=== PATIENT | female | born 1985 | race American Indian/Alaskan Native ===

== ENCOUNTER 2017-06-11 16:47 | Inpatient (IN) | payer MEDICAID ==
[2017-06-11] MEDS ORDERED: Sodium Chloride 0.9% 1,000 ML IV STA (17:18)
--- NOTE | 2017-06-11 17:23 | ED PDOC ---
Arrival/HPI - General Chief Complaint: Abdominal Pain Time Seen by Provider: 06/11/17 16:50 Historian: Patient - History of Present Illness Narrative History of Present Illness (Text): 06/11/17 17:21 31-year-old female with a history of high blood pressure and diabetes presents today with diffuse abdominal pain 2 days. Patient states the pain started yesterday suddenly. Patient states the pain is sharp and stabbing and constant along the center of the abdomen. Patient complaining of nausea no vomiting or diarrhea. Denies chest pain or shortness of breath. Complaining of mid lower back pain. Denies numbness weakness or tingling in the extremities. States she took Tylenol for pain without improvement. Patient denies dizziness or weakness. Patient complaining of urinary frequency but denies hematuria or dysuria. Complaining of subjective fevers at home. No other complaints. Time/Duration: Other (yesterday) Symptom Onset: Sudden Symptom Course: Worsening Quality: Stabbing Severity Level: 6 Past Medical History - Provider Review Nursing Documentation Reviewed: Yes - Travel History Have you recently traveled outside [place] w/in the past 3 mons?: No - Infectious Disease Hx of Infectious Diseases: None - Tetanus Immunization Tetanus Immunization: Unknown - Cardiac Hx Hypertension: Yes - Endocrine/Metabolic Hx Diabetes Mellitus Type 2: Yes Hx Hypothyroidism: Yes - Psychiatric Hx Substance Use: No - Anesthesia Hx Anesthesia: Yes Hx Anesthesia Reactions: No Hx Malignant Hyperthermia: No Family/Social History - Physician Review Nursing Documentation Reviewed: Yes Family/Social History: Unknown Family HX Smoking Status: Never Smoked Hx Alcohol Use: Yes Frequency of alcohol use: Socially Hx Substance Use: No Allergies/Home Meds Allergies/Adverse Reactions: Allergies No Known Allergies Allergy (Verified 06/11/17 16:54) Home Medications: Home Meds Medication Instructions Recorded Confirmed Lisinopril [Zestril] 5 mg PO DAILY 06/11/17 06/11/17 Simvastatin [Zocor] 20 mg PO HS 06/11/17 06/11/17 metFORMIN [glucOPHAGE] 750 mg PO BID 06/11/17 06/11/17 Review of Systems - Review of Systems Constitutional: Fevers. absent: Fatigue Respiratory: absent: SOB, Cough Cardiovascular: absent: Chest Pain, Palpitations Gastrointestinal: Abdominal Pain, Constipation, Nausea. absent: Diarrhea, Vomiting Genitourinary Female: Frequency. absent: Dysuria, Hematuria, Urine Output Changes, Vaginal Bleeding, Vaginal Discharge Musculoskeletal: Back Pain. absent: Arthralgias, Neck Pain Skin: absent: Rash, Pruritis Neurological: absent: Headache, Dizziness Psychiatric: absent: Anxiety, Depression Physical Exam Vital Signs Reviewed: Yes Vital Signs Temp Pulse Resp BP Pulse Ox 06/11/17 16:50 97.8 F 73 20 132/82 99 Temperature: Afebrile Blood Pressure: Normal Pulse: Regular Respiratory Rate: Normal Appearance: Positive for: Well-Appearing, Non-Toxic, Comfortable Pain Distress: None Mental Status: Positive for: Alert and Oriented X 3 - Systems Exam Head: Present: Atraumatic Mouth: Present: Moist Mucous Membranes Neck: Present: Normal Range of Motion Respiratory/Chest: Present: Clear to Auscultation, Good Air Exchange. No: Respiratory Distress, Accessory Muscle Use Cardiovascular: Present: Regular Rate and Rhythm Abdomen: Present: Tenderness (diffuse abdominal tenderness. ), Normal Bowel Sounds, Guarding. No: Rebound Back: Present: Normal Inspection. No: CVA Tenderness, Midline Tenderness, Paraspinal Tenderness Upper Extremity: Present: Normal Inspection Lower Extremity: Present: Normal Inspection Neurological: Present: GCS=15, Speech Normal Skin: Present: Warm, Dry Psychiatric: Present: Alert, Oriented x 3 Medical Decision Making ED Course and Treatment: 06/11/17 17:23 Patient is nontoxic well appearing with stable vital signs presenting with severe abdominal pain CBC wbc;15 CMP wnl Amylase wnl Lipase wnl Urinalysis+ blood, no leukocytes CAT scan: FINDINGS: Lower thorax: Heart size is normal. Lung bases are clear. ABDOMEN: Liver: unremarkable Gallbladder and bile ducts: unremarkable Pancreas: unremarkable Spleen: unremarkable Adrenals: unremarkable Kidneys and ureters: unremarkable Stomach and bowel: Stomach is almost empty. Rotation is normal. Mid small bowel is mildly distended with fluid. There is no obstruction. Terminal ileum is unremarkable. There is mild prominence of the appendix. Maximal diameter is approximately 7 mm. Margins are somewhat indistinct. There is adjacent inflammation. There is trace fluid adjacent to the tip of the appendix.Colon is incompletely distended which limits evaluation. Appendix: See stomach and bowel PELVIS: Bladder: unremarkable Reproductive: Uterus and adnexal structures are unremarkable. ABDOMEN and PELVIS: Intraperitoneal space: There is no free air. Bones/joints: There is sclerosis in the sacroiliac joints. Soft tissues: There is a fat containing umbilical hernia. Vasculature: Vascular structures are unremarkable. Lymph nodes: There is shotty adenopathy. IMPRESSION: Appendicitis Additional findings as described above. Patient reassessment: pt with continued pain. Vomited once after CT; zofran and morphine added. blood cultures pending. zosyn started IV. case discussed with medical surgical tech; dr. garcia. case discussed with surgeon dr. cristobal; currently at bedside evaluating patient. would like patient admitted to hospitalist. Discussed all results with patient in depth case discussed with dr. barrientos; accepts admission to med/surg for appendicitis Impression: Appendicitis, leukocytosis admit med/surg - Lab Interpretations Lab Results: 06/11/17 17:35 06/11/17 17:35 Lab Results 06/11/17 17:35: WBC 15.0 H, RBC 4.48, Hgb 12.4, Hct 38.1, MCV 85.0, MCH 27.7, MCHC 32.5, RDW 13.7, Plt Count 245, MPV 10.0, Gran % 73.4 H, Lymph % (Auto) 20.0 L, [place] % (Auto) 5.7, Eos % (Auto) 0.8 L, Baso % (Auto) 0.1, Gran # 11.01 H , Lymph # 3.0, [place] # 0.9 H, Eos # 0.1, Baso # 0.01 06/11/17 17:35: Sodium 139, Potassium 3.1 L, Chloride 100, Carbon Dioxide 31, Anion Gap 11, BUN 9, Creatinine 0.7, Est GFR ( Amer) > 60, Est GFR (Non- Af Amer) > 60, Random Glucose 101, Calcium 8.7, Total Bilirubin 0.5, AST 21, ALT 27, Alkaline Phosphatase 71, Total Protein 7.3, Albumin 3.7, Globulin 3.6, Albumin/Globulin Ratio 1.0 L, Amylase 39, Lipase 40 06/11/17 17:35: Urine Color Yellow, Urine Appearance Clear, Urine pH 6.0, Ur Specific [place] >= 1.030, Urine Protein 100 H, Urine Glucose (UA) Negative, Urine Ketones Negative, Urine Blood Trace-intact H, Urine Nitrate Negative, Urine Bilirubin Negative, Urine Urobilinogen 0.2, Ur Leukocyte Esterase Negative , Urine RBC 0 - 2, Urine WBC 0 - 2, Ur Epithelial Cells 0 - 2, Urine Bacteria Many, Urine HCG, Qual Negative - RAD Interpretation Radiology Orders: 06/11/17 17:17 ABD & PELVIS IV CONTRAST ONLY [CT] Stat CHEST PORTABLE [RAD] Stat - Medication Orders Current Medication Orders: Discontinued Medications Sodium Chloride (Sodium Chloride 0.9%) 1,000 mls @ 999 mls/hr IV .Q1H1M STA Stop: 06/11/17 18:18 Last Admin: 06/11/17 17:33 Dose: 999 mls/hr Piperacillin Sod/Tazobactam Sod (Zosyn 3.375 In Ns 100ml) 100 mls @ 200 mls/hr IVPB STAT STA PRN Reason: Protocol Stop: 06/11/17 20:38 Iohexol (Omnipaque 350 100 Ml) Confirm Administered Dose 350 mg .ROUTE .STK-MED ONE Stop: 06/11/17 18:13 Morphine Sulfate (Morphine) 4 mg IVP STAT STA Stop: 06/11/17 18:11 Last Admin: 06/11/17 18:31 Dose: 4 mg Ondansetron HCl (Zofran Inj) 4 mg IVP STAT STA Stop: 06/11/17 19:03 Last Admin: 06/11/17 19:16 Dose: 4 mg Disposition/Present on Arrival - Present on Arrival Any Indicators Present on Arrival: No History of DVT/PE: No History of Uncontrolled Diabetes: No Urinary Catheter: No History of Decub. Ulcer: No History Surgical Site Infection Following: None - Disposition Have Diagnosis and Disposition been Completed?: Yes Diagnosis: Appendicitis Disposition: HOSPITALIZED Disposition Time: 20:13 Patient Plan: Admission Patient Problems: Current Active Problems Problem Status Onset Appendicitis Acute Condition: FAIR Referrals: Chemo Bullock MD [Primary Care Provider] - Follow up with primary Forms: Mzinga (Australian)
[2017-06-11 17:42] LABS: ADD MANUAL DIFF? NO
[2017-06-11 17:54] LABS: ALKALINE PHOSPHATASE 71 U/L (38-133); ALT/SGPT 27 U/L (7-56); AMYLASE 39 U/L (35-125); AST/SGOT 21 U/L (15-39); BILIRUBIN,TOTAL 0.5 mg/dL (0.2-1.3); BLOOD UREA NITROGEN 9 mg/dL (7-21); CALCIUM 8.7 mg/dL (8.4-10.5); CARBON DIOXIDE 31 mmol/L (21-33); CHLORIDE 100 mmol/L (95-110); GFR AFRICAN-AMERICAN > 60; GLUCOSE,RANDOM 101 mg/dL (70-110); LIPASE 40 U/L (23-300); POTASSIUM 3.1 mmol/L (3.6-5.0); SODIUM 139 mmol/L (132-148); TOTAL PROTEIN 7.3 g/dL (5.8-8.3)
[2017-06-11 17:57] LABS: URINE APPEARANCE CLEAR (CLEAR); URINE BILIRUBIN NEGATIVE (NEGATIVE); URINE BLOOD TRACE-INTACT (NEGATIVE); URINE COLOR YELLOW (YELLOW); URINE GLUCOSE (UA) NEGATIVE (NEGATIVE); URINE KETONE NEGATIVE (NEGATIVE); URINE LEUKOCYTE ESTERASE NEGATIVE Leu/uL (NEGATIVE); URINE PROTEIN 100 mg/dL (<30 mg/dL); URINE UROBILINOGEN 0.2 E.U./dL (<1 E.U./dL)
[2017-06-11 18:08] LABS: BASO # 0.01 K/mm3 (0.0-2.0); BASO % 0.1 % (0.0-3.0); EOS # 0.1 (0.0-0.7); EOS % 0.8 % (1.5-5.0); GRAN # 11.01 (1.4-6.5); GRAN % 73.4 % (50.0-68.0); HEMATOCRIT 38.1 % (36.0-48.0); MEAN CORPUSCULAR HEMOGLOBIN 27.7 pg (25.0-35.0); MEAN CORPUSCULAR HGB CONC 32.5 g/dl (31.0-37.0); MONO # 0.9 (0.1-0.6); MONO % 5.7 % (1.0-6.0); PLATELET COUNT 245 10^3/uL (120.0-450.0); RED CELL DISTRIBUTION WIDTH 13.7 % (11.5-14.5)
[2017-06-11] MEDS ORDERED: Morphine 4 mg/ml ISec IVP STA (18:10)
[2017-06-11] MEDS ORDERED: Iohexol 350 MG/100 ML VIAL ONE (18:12)
[2017-06-11 18:16] LABS: URINE BACTERIA MANY (NEG); URINE EPITHELIAL CELLS 0 - 2 /hpf (0-5); URINE RBC 0 - 2 /hpf (0-2); URINE WBC 0 - 2 /hpf (0-6)
--- NOTE | 2017-06-11 19:58 | CT ---
EXAM: CT Abdomen and Pelvis With Intravenous Contrast CLINICAL HISTORY: 31 years old, female; Pain; Abdominal pain; Patient HX: Abd, back pain. ; Additional info: Abd pain TECHNIQUE: Axial computed tomography images of the abdomen and pelvis with intravenous contrast. This CT exam was performed using one or more of the following dose reduction techniques: automated exposure control, adjustment of the mA and/or kV according to patient size, and/or use of iterative reconstruction technique. Coronal and sagittal reformatted images were created and reviewed. CONTRAST: 96 mL of OMNIPAQUE 350 administered intravenously. EXAM DATE/TIME: 06/11/2017 5:17 PM COMPARISON: There are no prior studies for comparison. FINDINGS: Lower thorax: Heart size is normal. Lung bases are clear. ABDOMEN: Liver: unremarkable Gallbladder and bile ducts: unremarkable Pancreas: unremarkable Spleen: unremarkable Adrenals: unremarkable Kidneys and ureters: unremarkable Stomach and bowel: Stomach is almost empty. Rotation is normal. Mid small bowel is mildly distended with fluid. There is no obstruction. Terminal ileum is unremarkable. There is mild prominence of the appendix. Maximal diameter is approximately 7 mm. Margins are somewhat indistinct. There is adjacent inflammation. There is trace fluid adjacent to the tip of the appendix.Colon is incompletely distended which limits evaluation. Appendix: See stomach and bowel PELVIS: Bladder: unremarkable Reproductive: Uterus and adnexal structures are unremarkable. ABDOMEN and PELVIS: Intraperitoneal space: There is no free air. Bones/joints: There is sclerosis in the sacroiliac joints. Soft tissues: There is a fat containing umbilical hernia. Vasculature: Vascular structures are unremarkable. Lymph nodes: There is shotty adenopathy. IMPRESSION: Appendicitis Additional findings as described above.
[2017-06-11] MEDS ORDERED: Piperacillin/Tazobact 3.375 gm 100 ML IVPB STA (20:09)
[2017-06-11] MEDS ORDERED: Potassium Chloride 20 mEq ER Tab PO STA (20:58)
[2017-06-11] MEDS: Sodium Chloride 0.9% 1,000 ML IV SCH (21:50)
[2017-06-11] MEDS ORDERED: Ciprofloxacin 400mg/200ml D5W 400 MG/200 ML BAG IVPB SCH (22:00)
[2017-06-11] MEDS: Insulin Reg-MEDIUM-Coverage SC SCH (22:25)
[2017-06-11] MEDS: metroNIDAZOLE IV 500 mg/100 ml 500 MG/100 ML BAG IVPB SCH (22:30)
[2017-06-11] MEDS: Morphine 2 mg/ml ISec IVP PRN (23:29)
[2017-06-12 01:23] VITALS: BMI 48.5
--- NOTE | 2017-06-12 02:13 | CP.PCM.HP ---
<HERB THOMAS - Last Filed: 06/12/17 02:04> History of Present Illness - History of Present Illness History of Present Illness: CC: Diffuse Abdominal Pain HPI: Ms. Calix is a 31 year old AA female with a past medical history of DM2, HTN, HLD and hypothyroidism presented with one day of diffuse abdominal pain. Patient states that she was at home resting yesterday around 1700 when she suddenly felt a sharp non-radiating abdominal pain that was "all over" her abdomen and shortly after she became nauseous. She reports that alleviating/ aggravating factors. In the ED, a CT abd/pelvis showed appendicitis. She was also given one dose of morphine for pain control. Currently she continues to report the same abdominal pain with associated nausea and states that it has not changed in intensity or quality. She denies fever, headache, dizziness, chest pain, shortness of breath, vomiting, diarrhea or constipation. PMH: DM2, HTN, HLD, Hypothyroid PSH: none Family History: DM, HTN-Grandmother Social History: denies tobacco, alcohol or illicit drug use Allergies: NKDA Medications: Lisinopril, Synthroid, Metformin, Sitagliptin, and Simvastatin Present on Admission - Present on Admission Any Indicators Present on Admission: No Review of Systems - Review of Systems Review of Systems: please refer to HPI Past Patient History - Infectious Disease Hx of Infectious Diseases: None - Tetanus Immunizations Tetanus Immunization: Unknown - Past Social History Smoking Status: Never Smoked - CARDIAC Hx Hypertension: Yes - ENDOCRINE/METABOLIC Hx Diabetes Mellitus Type 2: Yes Hx Hypothyroidism: Yes - MUSCULOSKELETAL/RHEUMATOLOGICAL Hx Falls: Yes - PSYCHIATRIC Hx Substance Use: No - SURGICAL HISTORY Hx Surgeries: No - ANESTHESIA Hx Anesthesia: Yes Hx Anesthesia Reactions: No Hx Malignant Hyperthermia: No Meds Allergies/Adverse Reactions: Allergies Allergy/AdvReac Type Severity Reaction Status Date / Time No Known Allergies Allergy Verified 06/11/17 16:54 Physical Exam - Constitutional Appears: No Acute Distress - Head Exam Head Exam: NORMAL INSPECTION, NORMOCEPHALIC - Eye Exam Eye Exam: EOMI, Normal appearance - ENT Exam ENT Exam: Mucous Membranes Moist, Normal Exam - Neck Exam Neck exam: Positive for: Full Rom. Negative for: Lymphadenopathy - Respiratory Exam Respiratory Exam: Clear to Auscultation Bilateral, NORMAL BREATHING PATTERN. absent: Rales, Rhonchi, Wheezes, Respiratory Distress - Cardiovascular Exam Cardiovascular Exam: REGULAR RHYTHM, RRR, +S1, +S2. absent: Bradycardia, Tachycardia, Systolic Murmur - GI/Abdominal Exam GI & Abdominal Exam: Normal Bowel Sounds, Tenderness. absent: Distended, Firm, Hernia, Mass Additional comments: TTP diffusely with more so noted in LLQ - Extremities Exam Extremities exam: Positive for: normal capillary refill, pedal pulses present. Negative for: calf tenderness, pedal edema - Neurological Exam Neurological exam: Alert, Oriented x3 - Psychiatric Exam Psychiatric exam: Normal Affect, Normal Mood - Skin Skin Exam: Dry, Intact, Normal Color, Warm Results - Vital Signs Recent Vital Signs: Last Vital Signs Temp 98.7 F 06/11/17 22:00 Pulse 84 06/11/17 22:00 Resp 18 06/11/17 22:00 BP 157/91 H 06/11/17 22:00 Pulse Ox 100 06/11/17 21:47 - Labs Result Diagrams: 06/11/17 17:35 06/11/17 17:35 Labs: Laboratory Results - last 24 hr 06/11/17 06/11/17 06/11/17 21:30 21:39 22:24 POC Glucose (mg/dL) 119 H TSH 3rd Generation 4.03 Blood Type O POSITIVE Antibody Screen Negative BBK History Checked No verified bt Assessment & Plan - Assessment and Plan (Free Text) Assessment: Ms. Calix is a 31 year old AA female with a past medical history of DM2, HTN, HLD and hypothyroidism presented with one day of diffuse abdominal pain. Plan: 1. Appendicitis -Surgery consulted, all recs appreciated -planned appendectomy on 06/12 -started on rocephin/flagyl -morphine/tylenol for pain control -IVF: NS 100mls/hr -zofran PRN -NPO diet for surgery 2. History of DM2 -SSI medium -fingersticks q6 3. History of HTN -started hydralazine 4. History of Hypothyroid -TSH WNL -free T4 pending -started synthroid 50mcg qd 5. GI/DVT Prophylaxis -protonix/scd's Patient seen and case discussed in detail with attending, Dr. Lerner. - Date & Time Date: 06/12/17 Time: 02:14 <Joe Lerner Q - Last Filed: 06/12/17 04:41> Results - Vital Signs Recent Vital Signs: Last Vital Signs Temp 98.7 F 06/11/17 22:00 Pulse 84 06/11/17 22:00 Resp 18 06/11/17 22:00 BP 157/91 H 06/11/17 22:00 Pulse Ox 100 06/11/17 21:47 - Labs Result Diagrams: 06/11/17 17:35 06/11/17 17:35 Labs: Laboratory Results - last 24 hr 06/11/17 06/11/17 06/11/17 21:30 21:39 22:24 POC Glucose (mg/dL) 119 H TSH 3rd Generation 4.03 Blood Type O POSITIVE Antibody Screen Negative BBK History Checked No verified bt Attending/Attestation - Attestation I have personally seen and examined this patient.: Yes I have fully participated in the care of the patient.: Yes I have reviewed all pertinent clinical information: Yes Notes (Text): 06/12/17 04:39 I agree with the above note and exame by the international marketing intern with the addition/exception of the followin31 y/o obese female with Htn, DM2 presenting with abdominal pain and is found to have appendicitis on CT of her Abdomen. Evaluated by Surgery, planned for OR in the AM; will keep her NPO; IVF for hydration; Morphine prn pain. Patient is hemodynamically stable and only appears to be in mild distress which is alleviated by pain control with morphine.
--- NOTE | 2017-06-12 02:54 | CP.PCM.CON ---
History of Present Illness - History of Present Illness History of Present Illness: Consult Note- Dr. Christine CC: Abdominal Pain 31 AA F pmhx of DM2, HTN, and hypothyroidism presented with one day of diffuse abdominal pain. Patient states 5:00pm she suddenly felt a sharp non-radiating abdominal pain that was "all over" her abdomen and shortly after she became nauseous. In the ED abdominal pain continues with mild relief with morphine. Denies F/C/SELLERS CP/SOB V/D PMH: DM2, HTN, HLD, Hypothyroid PSH: none Allergies: NKDA SocialHx: denies tobacco, alcohol or illicit drug use Review of Systems - Review of Systems All systems: reviewed and no additional remarkable complaints except Past Patient History - Infectious Disease Hx of Infectious Diseases: None - Tetanus Immunizations Tetanus Immunization: Unknown - Past Social History Smoking Status: Never Smoked - CARDIAC Hx Hypertension: Yes - ENDOCRINE/METABOLIC Hx Diabetes Mellitus Type 2: Yes Hx Hypothyroidism: Yes - MUSCULOSKELETAL/RHEUMATOLOGICAL Hx Falls: Yes - PSYCHIATRIC Hx Substance Use: No - SURGICAL HISTORY Hx Surgeries: No - ANESTHESIA Hx Anesthesia: Yes Hx Anesthesia Reactions: No Hx Malignant Hyperthermia: No Meds Allergies/Adverse Reactions: Allergies Allergy/AdvReac Type Severity Reaction Status Date / Time No Known Allergies Allergy Verified 06/11/17 16:54 - Medications Medications: Current Medications Acetaminophen (Tylenol 325mg Tab) 650 mg PO Q6H PRN PRN Reason: Fever >100.4 F Hydralazine HCl (Apresoline) 10 mg IVP Q6 PRN PRN Reason: Systolic Blood Pressure Metronidazole (Flagyl) 500 mg in 100 mls @ 100 mls/hr IVPB Q8 TEJAS PRN Reason: Protocol Last Admin: 06/11/17 22:30 Dose: 100 mls/hr Sodium Chloride (Sodium Chloride 0.9%) 1,000 mls @ 100 mls/hr IV .Q10H TEJAS Last Admin: 06/11/17 21:50 Dose: 100 mls/hr Ceftriaxone Sodium (Rocephin 2 Gm Ivpb) 2 gm in 100 mls @ 100 mls/hr IVPB DAILY TEJAS PRN Reason: Protocol Insulin Human Regular (Humulin R Med) 0 units SC ACHS TEJAS PRN Reason: Protocol Last Admin: 06/11/17 22:25 Dose: Not Given Levothyroxine Sodium (Synthroid) 50 mcg IVP DAILY [facility] Morphine Sulfate (Morphine) 2 mg IVP Q4H PRN PRN Reason: Pain, severe (8-10) Last Admin: 06/11/17 23:29 Dose: 2 mg Ondansetron HCl (Zofran Inj) 4 mg IVP Q6H PRN PRN Reason: Nausea/Vomiting Pantoprazole Sodium (Protonix Inj) 40 mg IVP DAILY [facility] Physical Exam - Constitutional Appears: No Acute Distress - Head Exam Head Exam: ATRAUMATIC - Eye Exam Eye Exam: EOMI - ENT Exam ENT Exam: Mucous Membranes Moist - Respiratory Exam Respiratory Exam: NORMAL BREATHING PATTERN. absent: Accessory Muscle Use, Rhonchi, Wheezes - Cardiovascular Exam Cardiovascular Exam: REGULAR RHYTHM, +S1, +S2. absent: Gallop, Rubs - GI/Abdominal Exam GI & Abdominal Exam: Tenderness Additional comments: +Mcburnys +Rovsings +Psoas - Extremities Exam Extremities exam: Positive for: normal inspection - Neurological Exam Neurological exam: Alert, Oriented x3 - Skin Skin Exam: Normal Color, Warm Results - Vital Signs Recent Vital Signs: Last Vital Signs Temp 98.7 F 06/11/17 22:00 Pulse 84 06/11/17 22:00 Resp 18 06/11/17 22:00 BP 157/91 H 06/11/17 22:00 Pulse Ox 100 06/11/17 21:47 - Labs Result Diagrams: 06/12/17 07:00 06/12/17 07:00 Labs: Laboratory Results - last 24 hr 06/11/17 06/11/17 06/11/17 21:30 21:39 22:24 POC Glucose (mg/dL) 119 H TSH 3rd Generation 4.03 Blood Type O POSITIVE Antibody Screen Negative BBK History Checked No verified bt Assessment & Plan - Assessment and Plan (Free Text) Assessment: 31F Acute Appendicitis Plan: - NPO @ [place] - IV fluid, Abx - Pain control - GI/DVT ppx - f/u AM labs - Surgery Monday- laparoscopic appendectomy - further recs per Dr. Christine D/W Dr. Emmett Rodríguez PGY1
[2017-06-12] MEDS: cefTRIAXone 2 GM IN NS 2 GM/100 ML BAG IVPB SCH (05:13)
[2017-06-12] MEDS: metroNIDAZOLE IV 500 mg/100 ml 500 MG/100 ML BAG IVPB SCH ×3 (05:13→22:33)
[2017-06-12 07:37] LABS: ADD MANUAL DIFF? NO
[2017-06-12 07:44] LABS: BASO # 0.01 K/mm3 (0.0-2.0); BASO % 0.1 % (0.0-3.0); EOS # 0.1 (0.0-0.7); EOS % 0.9 % (1.5-5.0); GRAN # 8.31 (1.4-6.5); GRAN % 76.1 % (50.0-68.0); HEMATOCRIT 34.6 % (36.0-48.0); LYMPH # 1.8 (1.2-3.4); LYMPH % 16.2 % (22.0-35.0); MEAN CELL VOLUME 86.5 fL (80.0-105.0); MEAN CORPUSCULAR HEMOGLOBIN 27.3 pg (25.0-35.0); MEAN CORPUSCULAR HGB CONC 31.5 g/dl (31.0-37.0); MEAN PLATELET VOLUME 10.1 fl (7.0-11.0); MONO # 0.7 (0.1-0.6); MONO % 6.7 % (1.0-6.0); PLATELET COUNT 201 10^3/uL (120.0-450.0); RED CELL DISTRIBUTION WIDTH 13.9 % (11.5-14.5); WHITE BLOOD COUNT 10.9 10^3/ul (4.5-11.0)
[2017-06-12] MEDS: Insulin Reg-MEDIUM-Coverage SC SCH ×4 (07:54→22:33)
[2017-06-12 07:59] LABS: ALB/GLOB RATIO 0.9 (1.1-1.8); ALKALINE PHOSPHATASE 64 U/L (38-133); ALT/SGPT 17 U/L (7-56); AST/SGOT 17 U/L (15-39); BILIRUBIN,TOTAL 0.4 mg/dL (0.2-1.3); BLOOD UREA NITROGEN 6 mg/dL (7-21); CALCIUM 7.9 mg/dL (8.4-10.5); CARBON DIOXIDE 31 mmol/L (21-33); CHLORIDE 104 mmol/L (98-107); GFR AFRICAN-AMERICAN > 60; GLUCOSE,RANDOM 106 mg/dL (70-110); POTASSIUM 3.5 mmol/L (3.6-5.0); SODIUM 141 mmol/L (132-148); TOTAL PROTEIN 6.2 g/dL (5.8-8.3)
[2017-06-12] MEDS ORDERED: Potassium Chloride 20 mEq ER Tab PO STA (08:48)
[2017-06-12] MEDS: Levothyroxine 100 mcg (0.1 mg) Inj IVP SCH (09:20)
--- NOTE | 2017-06-12 09:29 | RAD ---
HISTORY: Abdominal pain. Portable study 18:24. By history, negative test (concurrent with this examination). COMPARISON: No prior. FINDINGS: LUNGS: No active pulmonary disease. PLEURA: No significant pleural effusion identified, no pneumothorax apparent. CARDIOVASCULAR: Normal. OSSEOUS STRUCTURES: No significant abnormalities. VISUALIZED UPPER ABDOMEN: Normal. OTHER FINDINGS: None. IMPRESSION: No active disease.
[2017-06-12] MEDS: Sodium Chloride 0.9% 1,000 ML IV SCH ×2 (09:31→22:34)
[2017-06-12] MEDS: Morphine 2 mg/ml ISec IVP PRN (09:32)
[2017-06-12 10:21] LABS: INR 1.11 (0.93-1.08); PARTIAL THROMBOPLASTIN TIME 32.4 Seconds (23.7-30.8)
[2017-06-12] MEDS ORDERED: Bupivacaine 0.5% Inj(30mL) ONE (17:24)
[2017-06-12] MEDS ORDERED: Propofol 10 mg/ml Inj (20 ML) ONE ×2 (18:09→18:13)
[2017-06-12] MEDS ORDERED: Rocuronium 10 mg/ml (5 ml) ONE (18:10)
[2017-06-12] MEDS ORDERED: Midazolam 2 MG/2 ML VIAL ONE (18:10)
[2017-06-12] MEDS ORDERED: ePHEDrine 50 mg/ml Inj ONE (18:13)
[2017-06-12] MEDS ORDERED: Neostigmine Methylsulfate 3mg/3ml Syringe IV ONE (19:25)
[2017-06-12] MEDS ORDERED: Glycopyrrolate 0.2 mg/ml (2ml vial) ONE (19:26)
[2017-06-12] MEDS ORDERED: Esmolol 100 mg/10ml Inj IV ONE (19:40)
[2017-06-12] MEDS ORDERED: Morphine 2 mg/ml ISec SC ONE (20:15)
--- NOTE | 2017-06-12 20:27 | PCM.SURG1 ---
Surgeon's Initial Post Op Note - Surgeon's Notes Surgeon: Emmett Trial Justice: Aliya Pre-Operative Diagnosis: Acute Appendicitis Operative Findings: inflammed phlegmenous apppendix Post-Operative Diagnosis: Acute appendicitis Operation Performed: Laparoscopic appendectomy Specimen/Specimens Removed: appendix Estimated Blood Loss: EBL {In ML}: 20 Date of Surgery/Procedure: 06/12/17 Time of Surgery/Procedure: 18:00
[2017-06-13] MEDS: Sodium Chloride 0.9% 1,000 ML IV SCH ×2 (05:11→13:50)
[2017-06-13] MEDS: metroNIDAZOLE IV 500 mg/100 ml 500 MG/100 ML BAG IVPB SCH ×3 (05:13→21:18)
[2017-06-13] MEDS: Morphine 2 mg/ml ISec IVP PRN ×3 (07:41→18:45)
[2017-06-13 08:01] LABS: ADD MANUAL DIFF? NO
[2017-06-13 08:04] LABS: BASO # 0.01 K/mm3 (0.0-2.0); BASO % 0.1 % (0.0-3.0); EOS # 0.1 (0.0-0.7); EOS % 0.7 % (1.5-5.0); GRAN # 9.58 (1.4-6.5); GRAN % 78.4 % (50.0-68.0); HEMATOCRIT 32.9 % (36.0-48.0); LYMPH # 1.8 (1.2-3.4); LYMPH % 14.3 % (22.0-35.0); MEAN CELL VOLUME 86.6 fL (80.0-105.0); MEAN CORPUSCULAR HEMOGLOBIN 27.1 pg (25.0-35.0); MEAN CORPUSCULAR HGB CONC 31.3 g/dl (31.0-37.0); MONO # 0.8 (0.1-0.6); MONO % 6.5 % (1.0-6.0); PLATELET COUNT 196 10^3/uL (120.0-450.0); RED CELL DISTRIBUTION WIDTH 13.8 % (11.5-14.5); WHITE BLOOD COUNT 12.2 10^3/ul (4.5-11.0)
[2017-06-13 08:26] LABS: ALKALINE PHOSPHATASE 58 U/L (38-133); ALT/SGPT 24 U/L (7-56); AST/SGOT 20 U/L (15-39); BILIRUBIN,TOTAL 0.4 mg/dL (0.2-1.3); BLOOD UREA NITROGEN 7 mg/dL (7-21); CALCIUM 7.9 mg/dL (8.4-10.5); CARBON DIOXIDE 30 mmol/L (21-33); CHLORIDE 102 mmol/L (95-110); GFR AFRICAN-AMERICAN > 60; GLUCOSE,RANDOM 82 mg/dL (70-110); POTASSIUM 3.5 mmol/L (3.6-5.0); SODIUM 139 mmol/L (132-148); TOTAL PROTEIN 5.7 g/dL (5.8-8.3)
[2017-06-13] MEDS ORDERED: Potassium Chloride 40 mEq/30 ml LIQ UD PO ONE (08:49)
--- NOTE | 2017-06-13 09:12 | CP.PCM.PN ---
Subjective - Date & Time of Evaluation Date of Evaluation: 06/13/17 Time of Evaluation: 07:15 - Subjective Subjective: Patient is a 31 year old female s/p appendectomy. Patient was seen at bedside today with no acute complaints. Patient states that abdominal pain has subsided and has improved in comparison to pain prior to surgery. SONIA reveals serosanguineous drainage. Patient denies nausea, vomiting, fevers. Patient states she does have an appetite. Objective - Vital Signs/Intake and Output Vital Signs (last 24 hours): Temp Pulse Resp BP Pulse Ox 97.9 F 64 20 115/77 100 06/13/17 08:04 06/13/17 08:04 06/13/17 08:04 06/13/17 08:04 06/13/17 08:04 Intake and Output: 06/13/17 06/13/17 06:59 18:59 Intake Total 1700 600 Output Total 500 Balance 1200 600 - Medications Medications: Current Medications Acetaminophen (Tylenol 325mg Tab) 650 mg PO Q6H PRN PRN Reason: Fever >100.4 F Hydralazine HCl (Apresoline) 10 mg IVP Q6 PRN PRN Reason: Systolic Blood Pressure Metronidazole (Flagyl) 500 mg in 100 mls @ 100 mls/hr IVPB Q8 TEJAS PRN Reason: Protocol Last Admin: 06/13/17 05:13 Dose: 100 mls/hr Sodium Chloride (Sodium Chloride 0.9%) 1,000 mls @ 100 mls/hr IV .Q10H [facility] Last Admin: 06/13/17 05:11 Dose: 100 mls/hr Ceftriaxone Sodium (Rocephin 2 Gm Ivpb) 2 gm in 100 mls @ 100 mls/hr IVPB DAILY TEJAS PRN Reason: Protocol Last Admin: 06/12/17 05:13 Dose: 100 mls/hr Insulin Human Regular (Humulin R Med) 0 units SC ACHS TEJAS PRN Reason: Protocol Last Admin: 06/12/17 22:33 Dose: Not Given Levothyroxine Sodium (Synthroid) 50 mcg IVP DAILY [facility] Last Admin: 06/12/17 09:20 Dose: 50 mcg Morphine Sulfate (Morphine) 2 mg IVP Q4H PRN PRN Reason: Pain, severe (8-10) Last Admin: 06/13/17 07:41 Dose: 2 mg Ondansetron HCl (Zofran Inj) 4 mg IVP Q6H PRN PRN Reason: Nausea/Vomiting Last Admin: 06/12/17 11:08 Dose: 4 mg Pantoprazole Sodium (Protonix Inj) 40 mg IVP DAILY TEJAS Last Admin: 06/12/17 09:22 Dose: 40 mg - Labs Labs: 06/13/17 07:30 06/13/17 07:30 PT 12.0 Seconds (9.9-11.8) H 06/12/17 09:57 INR 1.11 (0.93-1.08) H 06/12/17 09:57 APTT 32.4 Seconds (23.7-30.8) H 06/12/17 09:57 - Constitutional Appears: Well - Head Exam Head Exam: ATRAUMATIC, NORMAL INSPECTION, NORMOCEPHALIC - Eye Exam Eye Exam: EOMI, Normal appearance - ENT Exam ENT Exam: Mucous Membranes Moist, Normal Exam - Respiratory Exam Respiratory Exam: Clear to Ausculation Bilateral, NORMAL BREATHING PATTERN - Cardiovascular Exam Cardiovascular Exam: REGULAR RHYTHM, +S1, +S2 - GI/Abdominal Exam GI & Abdominal Exam: Soft, Normal Bowel Sounds - Neurological Exam Neurological Exam: Alert, Awake, Oriented x3 - Psychiatric Exam Psychiatric exam: Normal Affect, Normal Mood - Skin Skin Exam: Dry, Normal Color Assessment and Plan - Assessment and Plan (Free Text) Plan: 31 year old female s/p appendectomy -Advance patient to liquid diet; if patient is doing well with liquid diet, will advance to regular diet. - Follow up with blood results.
[2017-06-13] MEDS: Levothyroxine 100 mcg (0.1 mg) Inj IVP SCH (10:07)
[2017-06-13] MEDS: cefTRIAXone 2 GM IN NS 2 GM/100 ML BAG IVPB SCH (10:09)
[2017-06-13] MEDS: Insulin Reg-MEDIUM-Coverage SC SCH ×4 (10:16→21:41)
--- NOTE | 2017-06-13 13:36 | CP.PCM.PN ---
<Leyla Estrada - Last Filed: 06/13/17 13:47> Subjective - Date & Time of Evaluation Date of Evaluation: 06/13/17 Time of Evaluation: 07:10 - Subjective Subjective: Patient seen and examined at bedside. Patient is doing well, pain is controlled. Reports having one episode of vomiting last night mixed with dark red blood. Has since been able to tolerate clears. Patient is ambulating. Denies passing flatus or BM. Denies fevers, chills, nausea, vomiting, headaches , dizziness, SOB, CP, urinary symptoms. Objective - Vital Signs/Intake and Output Vital Signs (last 24 hours): Temp Pulse Resp BP Pulse Ox 97.9 F 64 20 115/77 100 06/13/17 08:04 06/13/17 08:04 06/13/17 08:04 06/13/17 08:04 06/13/17 08:04 Intake and Output: 06/13/17 06/13/17 06:59 18:59 Intake Total 1700 600 Output Total 500 Balance 1200 600 - Medications Medications: Current Medications Acetaminophen (Tylenol 325mg Tab) 650 mg PO Q6H PRN PRN Reason: Fever >100.4 F Enoxaparin Sodium (Lovenox) 40 mg SC DAILY TEJAS PRN Reason: Protocol Hydralazine HCl (Apresoline) 10 mg IVP Q6 PRN PRN Reason: Systolic Blood Pressure Metronidazole (Flagyl) 500 mg in 100 mls @ 100 mls/hr IVPB Q8 TEJAS PRN Reason: Protocol Last Admin: 06/13/17 05:13 Dose: 100 mls/hr Sodium Chloride (Sodium Chloride 0.9%) 1,000 mls @ 100 mls/hr IV .Q10H [facility] Last Admin: 06/13/17 05:11 Dose: 100 mls/hr Ceftriaxone Sodium (Rocephin 2 Gm Ivpb) 2 gm in 100 mls @ 100 mls/hr IVPB DAILY TEJAS PRN Reason: Protocol Last Admin: 06/13/17 10:09 Dose: 100 mls/hr Insulin Human Regular (Humulin R Med) 0 units SC ACHS TEJAS PRN Reason: Protocol Last Admin: 06/13/17 11:59 Dose: Not Given Levothyroxine Sodium (Synthroid) 50 mcg IVP DAILY [facility] Last Admin: 06/13/17 10:07 Dose: 50 mcg Morphine Sulfate (Morphine) 2 mg IVP Q4H PRN PRN Reason: Pain, severe (8-10) Last Admin: 06/13/17 11:46 Dose: 2 mg Ondansetron HCl (Zofran Inj) 4 mg IVP Q6H PRN PRN Reason: Nausea/Vomiting Last Admin: 06/12/17 11:08 Dose: 4 mg Pantoprazole Sodium (Protonix Inj) 40 mg IVP DAILY TEJAS Last Admin: 06/13/17 10:08 Dose: 40 mg - Labs Labs: 06/13/17 07:30 06/13/17 07:30 PT 12.0 Seconds (9.9-11.8) H 06/12/17 09:57 INR 1.11 (0.93-1.08) H 06/12/17 09:57 APTT 32.4 Seconds (23.7-30.8) H 06/12/17 09:57 - Constitutional Appears: Well, Non-toxic, No Acute Distress - Head Exam Head Exam: ATRAUMATIC, NORMAL INSPECTION - Eye Exam Eye Exam: EOMI, Normal appearance Pupil Exam: NORMAL ACCOMODATION - ENT Exam ENT Exam: Mucous Membranes Moist - Neck Exam Neck Exam: Full ROM - Respiratory Exam Respiratory Exam: Clear to Ausculation Bilateral, NORMAL BREATHING PATTERN Additional comments: ISS at bedside - Cardiovascular Exam Cardiovascular Exam: REGULAR RHYTHM, +S1, +S2 - GI/Abdominal Exam GI & Abdominal Exam: Soft, Tenderness, Hypoactive Bowel Sounds Additional comments: Dressing C/D/I SONIA drain 15cc serosanguinous fluid - Extremities Exam Extremities Exam: Normal Inspection. absent: Calf Tenderness, Pedal Edema - Back Exam Back Exam: NORMAL INSPECTION - Neurological Exam Neurological Exam: Alert, Awake, Oriented x3 - Psychiatric Exam Psychiatric exam: Normal Affect, Normal Mood - Skin Skin Exam: Normal Color, Warm Assessment and Plan (1) Appendicitis Assessment & Plan: 31 yo F with pmhx of HTN, DM, HLD, Hypothyroid presented with acute appendicitis , s/p lap appendectomy POD#1 1. Stable, afebrile 2. Pain control - morphine 3. Advance diet as tolerated 4. Encourage ambulation and hydration; encourage ISS use 5. Monitor SONIA drain output 6. Blood cx grew staph aureus/coag negative staph x 1; Subsequent blood cx grew gram positive cocci x 1 7. Will repeat blood cx 8. Continue Rocephin and Flagyl 9. Hx Hypothyroidism - continue Synthroid 10. Hx of DM - ISS, accuchecks 11. Hx of HTN - continue to monitor, on Hydralazine 12. Hypokalemia, K+ 3.5, repleted, F/U am CMP 12. GI/DVT ppx - Protonix and SCDs Status: Acute <Isaiah Clifton - Last Filed: 06/13/17 17:38> Objective - Vital Signs/Intake and Output Vital Signs (last 24 hours): Temp Pulse Resp BP Pulse Ox 97.9 F 64 20 115/77 100 06/13/17 08:04 06/13/17 08:04 06/13/17 08:04 06/13/17 08:04 06/13/17 08:04 Intake and Output: 06/13/17 06/13/17 06:59 18:59 Intake Total 1700 600 Output Total 500 Balance 1200 600 - Medications Medications: Current Medications Acetaminophen (Tylenol 325mg Tab) 650 mg PO Q6H PRN PRN Reason: Fever >100.4 F Enoxaparin Sodium (Lovenox) 40 mg SC DAILY TEJAS PRN Reason: Protocol Hydralazine HCl (Apresoline) 10 mg IVP Q6 PRN PRN Reason: Systolic Blood Pressure Metronidazole (Flagyl) 500 mg in 100 mls @ 100 mls/hr IVPB Q8 TEJAS PRN Reason: Protocol Last Admin: 06/13/17 13:49 Dose: 100 mls/hr Sodium Chloride (Sodium Chloride 0.9%) 1,000 mls @ 100 mls/hr IV .Q10H [facility] Last Admin: 06/13/17 13:50 Dose: 100 mls/hr Ceftriaxone Sodium (Rocephin 2 Gm Ivpb) 2 gm in 100 mls @ 100 mls/hr IVPB DAILY TEJAS PRN Reason: Protocol Last Admin: 06/13/17 10:09 Dose: 100 mls/hr Insulin Human Regular (Humulin R Med) 0 units SC ACHS TEJAS PRN Reason: Protocol Last Admin: 06/13/17 16:26 Dose: 1 units Levothyroxine Sodium (Synthroid) 50 mcg IVP DAILY [facility] Last Admin: 06/13/17 10:07 Dose: 50 mcg Morphine Sulfate (Morphine) 2 mg IVP Q4H PRN PRN Reason: Pain, severe (8-10) Last Admin: 06/13/17 11:46 Dose: 2 mg Ondansetron HCl (Zofran Inj) 4 mg IVP Q6H PRN PRN Reason: Nausea/Vomiting Last Admin: 06/12/17 11:08 Dose: 4 mg Pantoprazole Sodium (Protonix Inj) 40 mg IVP DAILY TEJAS Last Admin: 06/13/17 10:08 Dose: 40 mg - Labs Labs: 06/13/17 07:30 06/13/17 07:30 PT 12.0 Seconds (9.9-11.8) H 06/12/17 09:57 INR 1.11 (0.93-1.08) H 06/12/17 09:57 APTT 32.4 Seconds (23.7-30.8) H 06/12/17 09:57 Attending/Attestation - Attestation I have personally seen and examined this patient.: Yes I have fully participated in the care of the patient.: Yes I have reviewed all pertinent clinical information, including history, physical exam and plan: Yes Notes (Text): 06/13/17 17:33 31 year old female with past medical history of hypertension, diabetes and hypothyroidism who presented with RLQ pain secondary to acute appendicitis. She is s/p appendectomy POD #1. SONIA drain is in place. Surgery is following. She is on iv antibiotics and analgesics. Advance diet as tolerated as per surgery. BCx were positive for gram positive cocci. R/o contamination vs bacteremia. Repeat cultures are ordered and she is on antibiotics as above. Isaiah Clifton MD Hospitalist.
[2017-06-13] MEDS ORDERED: Vancomycin 1gm in NS 250ml 1 GM/250 ML BAG IVPB STA (14:18)
--- NOTE | 2017-06-14 01:06 | OP ---
PROCEDURE DATE: 06/12/2017 PREOPERATIVE DIAGNOSES: 1. Acute appendicitis. 2. Morbid obesity. POSTOPERATIVE DIAGNOSES: 1. Acute phlegmonous appendicitis. 2. Periappendicular abscess. 3. Extensive inflammatory changes in the right lower quadrant. 4. Morbid obesity. PROCEDURE: 1. Laparoscopic appendectomy. 2. Laparoscopic extensive lysis of adhesions. 3. Laparoscopic drainage of periappendicular abscess. SURGEON: Dr. Christine. SENIOR SALES EXECUTIVE: Maikol Pisano, PGY-2 resident. TYPE OF ANESTHESIA: General endotracheal tube anesthesia. ESTIMATED BLOOD LOSS: Around 50 mL. DRAIN: Kobe drain was placed in the pelvis and in the right lower quadrant. PATHOLOGY: Appendix was sent to the pathology. COMPLICATIONS: None. INTRAOPERATIVE FINDINGS: The patient had phlegmonous acute appendicitis with periappendicular abscess and phlegmonous changes with adhesion of the colon and the small bowel to the appendix and small bowel to the anterior abdominal wall and colon to the anterior abdominal wall. DESCRIPTION OF PROCEDURE: Intraoperative tests, this 31-year-old morbidly obese patient, was diagnosed with acute appendicitis and the patient was consented for laparoscopic appendectomy, possible open, brought to the OR, placed supine on the operating table. After induction of the anesthesia, abdomen was prepped and draped in the usual sterile fashion and supraumbilical transverse 1.5 cm incision was made after incising skin and subcutaneous tissue. The fascia was incised in the line of incision. Janessa port was placed, pneumo was created. The 5 mm port was placed in suprapubic region. A 12 mm port was placed in left lower quadrant. After that grasper and dissector was introduced. The patient was found to have abscess in the right lower quadrant as well as in the pelvis that was first drained with suction irrigation and after that, the phlegmonous mass was dissected with blunt and sharp dissection, and appendix appeared to be extremely thick and edematous and attached to the ileum, colon, as well as right pelvic wall. With blunt and sharp dissection, extensive lysis of adhesion was done to identify the base of the appendix. The base of the appendix was resected with a KAROL and the mesoappendix was resected with also KAROL and hemostasis was achieved and after proper suction irrigation, the 19-Trist[place] Kobe drain was placed and pneumo was deflated. All the port was taken out under vision and the umbilical port site was closed in 2 layers, fascia with a 0 Vicryl interrupted suture, skin with a 4-0 Monocryl, and dry sterile dressing was applied. The patient tolerated the procedure well. Count of the instrument was correct. There was no apparent complication. The patient was extubated in OR and sent to the postanesthesia care unit in stable condition. Cisco Christine MD MTDD
[2017-06-14 01:40] VITALS: RESP 20
[2017-06-14] MEDS: Morphine 2 mg/ml ISec IVP PRN (03:48)
[2017-06-14] MEDS: metroNIDAZOLE IV 500 mg/100 ml 500 MG/100 ML BAG IVPB SCH (05:26)
[2017-06-14] MEDS: Sodium Chloride 0.9% 1,000 ML IV SCH (05:27)
[2017-06-14 07:15] LABS: ADD MANUAL DIFF? NO
[2017-06-14 07:21] LABS: BASO # 0.01 K/mm3 (0.0-2.0); BASO % 0.1 % (0.0-3.0); EOS # 0.2 (0.0-0.7); EOS % 1.5 % (1.5-5.0); GRAN # 8.34 (1.4-6.5); GRAN % 76.1 % (50.0-68.0); LYMPH # 1.9 (1.2-3.4); LYMPH % 17.2 % (22.0-35.0); MEAN CELL VOLUME 86.4 fL (80.0-105.0); MEAN CORPUSCULAR HEMOGLOBIN 27.2 pg (25.0-35.0); MEAN CORPUSCULAR HGB CONC 31.4 g/dl (31.0-37.0); MEAN PLATELET VOLUME 9.5 fl (7.0-11.0); MONO # 0.6 (0.1-0.6); MONO % 5.1 % (1.0-6.0); PLATELET COUNT 219 10^3/uL (120.0-450.0); RED CELL DISTRIBUTION WIDTH 13.8 % (11.5-14.5)
[2017-06-14 07:37] LABS: ALKALINE PHOSPHATASE 67 U/L (38-133); ALT/SGPT 26 U/L (7-56); AST/SGOT 21 U/L (15-39); BILIRUBIN,TOTAL 0.2 mg/dL (0.2-1.3); BLOOD UREA NITROGEN 7 mg/dL (7-21); CARBON DIOXIDE 29 mmol/L (21-33); CHLORIDE 104 mmol/L (95-110); GFR AFRICAN-AMERICAN > 60; GLUCOSE,RANDOM 110 mg/dL (70-110); MAGNESIUM 1.5 mg/dL (1.7-2.2); PHOSPHOROUS 3.2 mg/dL (2.5-4.5); POTASSIUM 3.7 mmol/L (3.6-5.0); SODIUM 140 mmol/L (132-148); TOTAL PROTEIN 6.3 g/dL (5.8-8.3)
--- NOTE | 2017-06-14 07:51 | CP.PCM.PN ---
<OLI NEGRON - Last Filed: 06/14/17 15:24> Subjective - Date & Time of Evaluation Date of Evaluation: 06/14/17 Time of Evaluation: 07:00 - Subjective Subjective: Patient is a 31 year old female s/p appendectomy seen and examined at bedside today with no acute complaints overnight. Patient states she ate and slept well. SONIA drainage reveals serosanguineous fluid. She has been ambulating and compliant with IS. Patient denies n/v/d. Objective - Vital Signs/Intake and Output Vital Signs (last 24 hours): Temp Pulse Resp BP Pulse Ox 98.8 F 81 20 136/68 100 06/14/17 00:00 06/14/17 00:00 06/14/17 00:00 06/14/17 00:00 06/14/17 00:00 Intake and Output: 06/14/17 06/14/17 06:59 18:59 Intake Total 2100 Output Total 260 Balance 1840 - Medications Medications: Current Medications Acetaminophen (Tylenol 325mg Tab) 650 mg PO Q6H PRN PRN Reason: Fever >100.4 F Enoxaparin Sodium (Lovenox) 40 mg SC DAILY TEJAS PRN Reason: Protocol Hydralazine HCl (Apresoline) 10 mg IVP Q6 PRN PRN Reason: Systolic Blood Pressure Metronidazole (Flagyl) 500 mg in 100 mls @ 100 mls/hr IVPB Q8 TEJAS PRN Reason: Protocol Last Admin: 06/14/17 05:26 Dose: 100 mls/hr Sodium Chloride (Sodium Chloride 0.9%) 1,000 mls @ 100 mls/hr IV .Q10H [facility] Last Admin: 06/14/17 05:27 Dose: 100 mls/hr Ceftriaxone Sodium (Rocephin 2 Gm Ivpb) 2 gm in 100 mls @ 100 mls/hr IVPB DAILY TEJAS PRN Reason: Protocol Last Admin: 06/13/17 10:09 Dose: 100 mls/hr Insulin Human Regular (Humulin R Med) 0 units SC ACHS TEJAS PRN Reason: Protocol Last Admin: 06/13/17 21:41 Dose: Not Given Levothyroxine Sodium (Synthroid) 50 mcg IVP DAILY [facility] Last Admin: 06/13/17 10:07 Dose: 50 mcg Morphine Sulfate (Morphine) 2 mg IVP Q4H PRN PRN Reason: Pain, severe (8-10) Last Admin: 06/14/17 03:48 Dose: 2 mg Ondansetron HCl (Zofran Inj) 4 mg IVP Q6H PRN PRN Reason: Nausea/Vomiting Last Admin: 06/12/17 11:08 Dose: 4 mg Pantoprazole Sodium (Protonix Inj) 40 mg IVP DAILY TEJAS Last Admin: 06/13/17 10:08 Dose: 40 mg - Labs Labs: 06/14/17 06:45 06/14/17 06:45 PT 12.0 Seconds (9.9-11.8) H 06/12/17 09:57 INR 1.11 (0.93-1.08) H 06/12/17 09:57 APTT 32.4 Seconds (23.7-30.8) H 06/12/17 09:57 - Constitutional Appears: Well - Head Exam Head Exam: ATRAUMATIC, NORMAL INSPECTION, NORMOCEPHALIC - ENT Exam ENT Exam: Mucous Membranes Moist, Normal Exam - Respiratory Exam Respiratory Exam: Clear to Ausculation Bilateral, NORMAL BREATHING PATTERN - Cardiovascular Exam Cardiovascular Exam: REGULAR RHYTHM, RRR, +S1, +S2 - GI/Abdominal Exam GI & Abdominal Exam: Soft, Normal Bowel Sounds - Skin Skin Exam: Normal Color, Warm Assessment and Plan - Assessment and Plan (Free Text) Plan: 1. 31 year old female s/p appendectomy - Patient started on Lovenox 40 mg qD for DVT prophylaxis. - From a surgery standpoint patient is clear for d/c. - Patient instructed on proper care and cleaning of drain. - Patient will go home with drain in place for removal in office in 1 week; Augmentin for 10 days. Oli Negron D.O. PGY1 <Cisco Christine - Last Filed: 06/14/17 20:49> Objective - Vital Signs/Intake and Output Vital Signs (last 24 hours): Temp Pulse Resp BP Pulse Ox 98.7 F 80 20 149/92 H 97 06/14/17 07:00 06/14/17 07:00 06/14/17 07:00 06/14/17 07:00 06/14/17 07:00 Intake and Output: 06/14/17 06/15/17 18:59 06:59 Intake Total 1350 Balance 1350 - Labs Labs: 06/14/17 06:45 06/14/17 06:45 PT 12.0 Seconds (9.9-11.8) H 06/12/17 09:57 INR 1.11 (0.93-1.08) H 06/12/17 09:57 APTT 32.4 Seconds (23.7-30.8) H 06/12/17 09:57 Attending/Attestation - Attestation I have personally seen and examined this patient.: Yes I have fully participated in the care of the patient.: Yes I have reviewed all pertinent clinical information, including history, physical exam and plan: Yes Notes (Text): 06/14/17 20:49 Pt was seen and examined at bedside on 06/14/17 Agree with above note and assessment
[2017-06-14] MEDS ORDERED: Oxycodone/Acetaminophen 5/325 mg Tab PO PRN (08:37)
[2017-06-14] MEDS: Insulin Reg-MEDIUM-Coverage SC SCH ×2 (09:01→14:29)
[2017-06-14] MEDS ORDERED: Enoxaparin 40 mg Syringe SC SCH (10:00)
[2017-06-14] MEDS: cefTRIAXone 2 GM IN NS 2 GM/100 ML BAG IVPB SCH (10:26)
[2017-06-14] MEDS: Levothyroxine 100 mcg (0.1 mg) Inj IVP SCH (10:30)
[2017-06-14] MEDS ORDERED: Magnesium Sulfate 2 GM in Sodium Chloride 0.9% 100 ML IVPB ONE (11:12)
[2017-06-14 12:01] VITALS: BP 149/92; PULSE 80; TEMP 98.7; O2SAT 97
--- NOTE | 2017-06-14 14:43 | CP.PCM.DIS ---
Addendum entered and electronically signed by Piyush Collier DO 06/14/17 15:55: Patient was seen throughout admission alongside Dr. Estrada. Patient s/p appendectomy. Found to have bacteremia and started on empiric abx. Patient having continued output from SONIA drain so will be following up with surgery for removal once output decreases. Will continue on augmentin. Piyush Collier D.O. PGY-2 Original Note: <Leyla Estrada - Last Filed: 06/14/17 14:54> Provider - Provider Date of Admission: 06/11/17 21:04 Attending physician: Isaiah Clifton MD Primary care physician: Chemo Bullock MD Consults: Surgery: Emmett Time Spent in preparation of Discharge (in minutes): 30 Diagnosis - Discharge Diagnosis (1) Appendicitis Status: Acute Hospital Course - Lab Results Lab Results: Micro Results 06/13/17 12:28 Blood-Venous Blood Culture - Preliminary NO GROWTH AFTER 24 HOURS 06/13/17 12:58 Blood-Venous Blood Culture - Preliminary NO GROWTH AFTER 24 HOURS 06/11/17 21:30 Blood Blood Culture - Preliminary Coagulase Neg Staphylococcus 06/11/17 21:30 Blood Gram Stain - Final Most Recent Lab Values WBC 11.0 10^3/ul (4.5-11.0) 06/14/17 06:45 RBC 4.05 10^6/uL (3.5-6.1) 06/14/17 06:45 Hgb 11.0 gm/dL (12.0-16.0) L 06/14/17 06:45 Hct 35.0 % (36.0-48.0) L 06/14/17 06:45 MCV 86.4 fL (80.0-105.0) 06/14/17 06:45 MCH 27.2 pg (25.0-35.0) 06/14/17 06:45 MCHC 31.4 g/dl (31.0-37.0) 06/14/17 06:45 RDW 13.8 % (11.5-14.5) 06/14/17 06:45 Plt Count 219 10^3/uL (120.0-450.0) 06/14/17 06:45 MPV 9.5 fl (7.0-11.0) 06/14/17 06:45 Gran % 76.1 % (50.0-68.0) H 06/14/17 06:45 Lymph % (Auto) 17.2 % (22.0-35.0) L 06/14/17 06:45 [place] % (Auto) 5.1 % (1.0-6.0) 06/14/17 06:45 Eos % (Auto) 1.5 % (1.5-5.0) 06/14/17 06:45 Baso % (Auto) 0.1 % (0.0-3.0) 06/14/17 06:45 Gran # 8.34 (1.4-6.5) H 06/14/17 06:45 Lymph # 1.9 (1.2-3.4) 06/14/17 06:45 [place] # 0.6 (0.1-0.6) 06/14/17 06:45 Eos # 0.2 (0.0-0.7) 06/14/17 06:45 Baso # 0.01 K/mm3 (0.0-2.0) 06/14/17 06:45 PT 12.0 Seconds (9.9-11.8) H 06/12/17 09:57 INR 1.11 (0.93-1.08) H 06/12/17 09:57 APTT 32.4 Seconds (23.7-30.8) H 06/12/17 09:57 Sodium 140 mmol/L (132-148) 06/14/17 06:45 Potassium 3.7 mmol/L (3.6-5.0) 06/14/17 06:45 Chloride 104 mmol/L (95-110) 06/14/17 06:45 Carbon Dioxide 29 mmol/L (21-33) 06/14/17 06:45 Anion Gap 11 (10-20) 06/14/17 06:45 BUN 7 mg/dL (7-21) 06/14/17 06:45 Creatinine 0.7 mg/dL (0.5-1.4) 06/14/17 06:45 Est GFR ( Amer) > 60 06/14/17 06:45 Est GFR (Non-Af Amer) > 60 06/14/17 06:45 POC Glucose (mg/dL) 129 mg/dL (65-110) H 06/13/17 21:27 Random Glucose 110 mg/dL (70-110) 06/14/17 06:45 Calcium 8.0 mg/dL (8.4-10.5) L 06/14/17 06:45 Phosphorus 3.2 mg/dL (2.5-4.5) 06/14/17 06:45 Magnesium 1.5 mg/dL (1.7-2.2) L 06/14/17 06:45 Total Bilirubin 0.2 mg/dL (0.2-1.3) 06/14/17 06:45 AST 21 U/L (15-39) 06/14/17 06:45 ALT 26 U/L (7-56) 06/14/17 06:45 Alkaline Phosphatase 67 U/L (38-133) 06/14/17 06:45 Total Protein 6.3 g/dL (5.8-8.3) 06/14/17 06:45 Albumin 3.1 g/dL (3.0-4.8) 06/14/17 06:45 Globulin 3.2 gm/dL 06/14/17 06:45 Albumin/Globulin Ratio 1.0 (1.1-1.8) L 06/14/17 06:45 Amylase 39 U/L (35-125) 06/11/17 17:35 Lipase 40 U/L (23-300) 06/11/17 17:35 Free T4 1.08 ng/dL (0.78-2.19) 06/12/17 07:00 TSH 3rd Generation 4.03 mIU/mL (0.46-4.68) 06/11/17 21:39 Urine Color Yellow (YELLOW) 06/11/17 17:35 Urine Appearance Clear (CLEAR) 06/11/17 17:35 Urine pH 6.0 (4.7-8.0) 06/11/17 17:35 Ur Specific [place] >= 1.030 (1.005-1.035) 06/11/17 17:35 Urine Protein 100 mg/dL (<30 mg/dL) H 06/11/17 17:35 Urine Glucose (UA) Negative mg/dL (NEGATIVE) 06/11/17 17:35 Urine Ketones Negative mg/dL (NEGATIVE) 06/11/17 17:35 Urine Blood Trace-intact (NEGATIVE) H 06/11/17 17:35 Urine Nitrate Negative (NEGATIVE) 06/11/17 17:35 Urine Bilirubin Negative (NEGATIVE) 06/11/17 17:35 Urine Urobilinogen 0.2 E.U./dL (<1 E.U./dL) 06/11/17 17:35 Ur Leukocyte Esterase Negative Slim/uL (NEGATIVE) 06/11/17 17:35 Urine RBC 0 - 2 /hpf (0-2) 06/11/17 17:35 Urine WBC 0 - 2 /hpf (0-6) 06/11/17 17:35 Ur Epithelial Cells 0 - 2 /hpf (0-5) 06/11/17 17:35 Urine Bacteria Many (NEG) 06/11/17 17:35 Urine HCG, Qual Negative (NEGATIVE) 06/11/17 17:35 Blood Type O POSITIVE 06/11/17 21:30 Blood Type Confirm O POSITIVE 06/11/17 21:50 Antibody Screen Negative 06/11/17 21:30 BBK History Checked No verified bt 06/11/17 21:30 - Hospital Course Hospital Course: Patient is a 31 year old AA female with a past medical history of DM2, HTN, HLD and hypothyroidism presented with one day history of diffuse abdominal pain. Patient states that she was at home resting yesterday around 1700 when she suddenly felt a sharp non-radiating abdominal pain that was "all over" her abdomen and shortly after she became nauseous. She reports that alleviating/ aggravating factors. In the ED, a CT abd/pelvis showed appendicitis. Patient was admitted and started on Rocephin and Flagyl for antibiotics. General surgery was consulted. Patient was taken to the OR for Laparoscopic Appendectomy. Patient tolerated the procedure well. SONIA drain left in place. Blood cx on admission grew coag negative staph x 2. Repeat blood cx showed no growth after 24 hours. Labs were monitored, Leukocytosis resolved. Electrolytes were repleted as needed. On POD#2 patient reports that pain is controlled. She is ambulating and tolerating diet. Passing flatus but denies having a BM. Urinating without difficulty. Offers no complaints at this time. Patient was medically stable upon discharge. Instructed to follow up with surgery and PMD within 1 week. Patient given prescription for Percocet and is to take Augmentin 500-125mg PO BID x 10 days. Patient discharged with SONIA drain. All questions and concerns were addressed. Discharge Exam - Head Exam Head Exam: ATRAUMATIC, NORMAL INSPECTION, NORMOCEPHALIC - Eye Exam Eye Exam: EOMI, Normal appearance Pupil Exam: NORMAL ACCOMODATION - ENT Exam ENT Exam: Mucous Membranes Moist - Neck Exam Neck exam: Full Rom - Respiratory Exam Respiratory Exam: Clear to PA & Lateral, NORMAL BREATHING PATTERN. absent: Rales, Rhonchi, Wheezes - Cardiovascular Exam Cardiovascular Exam: REGULAR RHYTHM, +S1, +S2 - GI/Abdominal Exam GI & Abdominal Exam: Hypoactive Bowel Sounds, Soft, Tenderness. absent: Distended, Rebound, Rigid Additional comments: SONIA drain - 55cc of serosanginous drainage noted - Extremities Exam Extremities exam: normal inspection, pedal pulses present - Neurological Exam Neurological exam: Alert, Normal Gait, Oriented x3 - Psychiatric Exam Psychiatric exam: Normal Affect, Normal Mood - Skin Skin Exam: Normal Color Discharge Plan - Discharge Medications Prescriptions: Amoxicillin/Clavulanate [Augmentin 500 MG-125 MG] 1 tab PO BID #20 tab oxyCODONE/Acetaminophen [Percocet 5/325 mg Tab] 1 ea PO Q6H #12 tab - Follow Up Plan Condition: FAIR Disposition: HOME/ ROUTINE Instructions: Appendicitis (DC) Additional Instructions: Patient is clear for discharge home, percocet/motrin prn pain, f/u with surgery and PMD in 1 week, continue Augmentin 500-125mg BID x 10 days Referrals: Chemo Bullock MD [Primary Care Provider] - <Isaiah Clifton - Last Filed: 06/14/17 18:31> Provider - Provider Date of Admission: 06/11/17 21:04 Attending physician: Isaiah Clifton MD Primary care physician: Chemo Bullock MD Time Spent in preparation of Discharge (in minutes): 35 Hospital Course - Lab Results Lab Results: Micro Results 06/13/17 12:28 Blood-Venous Blood Culture - Preliminary NO GROWTH AFTER 24 HOURS 06/13/17 12:58 Blood-Venous Blood Culture - Preliminary NO GROWTH AFTER 24 HOURS 06/11/17 21:30 Blood Blood Culture - Preliminary Coagulase Neg Staphylococcus 06/11/17 21:30 Blood Gram Stain - Final Most Recent Lab Values WBC 11.0 10^3/ul (4.5-11.0) 06/14/17 06:45 RBC 4.05 10^6/uL (3.5-6.1) 06/14/17 06:45 Hgb 11.0 gm/dL (12.0-16.0) L 06/14/17 06:45 Hct 35.0 % (36.0-48.0) L 06/14/17 06:45 MCV 86.4 fL (80.0-105.0) 06/14/17 06:45 MCH 27.2 pg (25.0-35.0) 06/14/17 06:45 MCHC 31.4 g/dl (31.0-37.0) 06/14/17 06:45 RDW 13.8 % (11.5-14.5) 06/14/17 06:45 Plt Count 219 10^3/uL (120.0-450.0) 06/14/17 06:45 MPV 9.5 fl (7.0-11.0) 06/14/17 06:45 Gran % 76.1 % (50.0-68.0) H 06/14/17 06:45 Lymph % (Auto) 17.2 % (22.0-35.0) L 06/14/17 06:45 [place] % (Auto) 5.1 % (1.0-6.0) 06/14/17 06:45 Eos % (Auto) 1.5 % (1.5-5.0) 06/14/17 06:45 Baso % (Auto) 0.1 % (0.0-3.0) 06/14/17 06:45 Gran # 8.34 (1.4-6.5) H 06/14/17 06:45 Lymph # 1.9 (1.2-3.4) 06/14/17 06:45 [place] # 0.6 (0.1-0.6) 06/14/17 06:45 Eos # 0.2 (0.0-0.7) 06/14/17 06:45 Baso # 0.01 K/mm3 (0.0-2.0) 06/14/17 06:45 PT 12.0 Seconds (9.9-11.8) H 06/12/17 09:57 INR 1.11 (0.93-1.08) H 06/12/17 09:57 APTT 32.4 Seconds (23.7-30.8) H 06/12/17 09:57 Sodium 140 mmol/L (132-148) 06/14/17 06:45 Potassium 3.7 mmol/L (3.6-5.0) 06/14/17 06:45 Chloride 104 mmol/L (95-110) 06/14/17 06:45 Carbon Dioxide 29 mmol/L (21-33) 06/14/17 06:45 Anion Gap 11 (10-20) 06/14/17 06:45 BUN 7 mg/dL (7-21) 06/14/17 06:45 Creatinine 0.7 mg/dL (0.5-1.4) 06/14/17 06:45 Est GFR ( Amer) > 60 06/14/17 06:45 Est GFR (Non-Af Amer) > 60 06/14/17 06:45 POC Glucose (mg/dL) 129 mg/dL (65-110) H 06/13/17 21:27 Random Glucose 110 mg/dL (70-110) 06/14/17 06:45 Calcium 8.0 mg/dL (8.4-10.5) L 06/14/17 06:45 Phosphorus 3.2 mg/dL (2.5-4.5) 06/14/17 06:45 Magnesium 1.5 mg/dL (1.7-2.2) L 06/14/17 06:45 Total Bilirubin 0.2 mg/dL (0.2-1.3) 06/14/17 06:45 AST 21 U/L (15-39) 06/14/17 06:45 ALT 26 U/L (7-56) 06/14/17 06:45 Alkaline Phosphatase 67 U/L (38-133) 06/14/17 06:45 Total Protein 6.3 g/dL (5.8-8.3) 06/14/17 06:45 Albumin 3.1 g/dL (3.0-4.8) 06/14/17 06:45 Globulin 3.2 gm/dL 06/14/17 06:45 Albumin/Globulin Ratio 1.0 (1.1-1.8) L 06/14/17 06:45 Amylase 39 U/L (35-125) 06/11/17 17:35 Lipase 40 U/L (23-300) 06/11/17 17:35 Free T4 1.08 ng/dL (0.78-2.19) 06/12/17 07:00 TSH 3rd Generation 4.03 mIU/mL (0.46-4.68) 06/11/17 21:39 Urine Color Yellow (YELLOW) 06/11/17 17:35 Urine Appearance Clear (CLEAR) 06/11/17 17:35 Urine pH 6.0 (4.7-8.0) 06/11/17 17:35 Ur Specific [place] >= 1.030 (1.005-1.035) 06/11/17 17:35 Urine Protein 100 mg/dL (<30 mg/dL) H 06/11/17 17:35 Urine Glucose (UA) Negative mg/dL (NEGATIVE) 06/11/17 17:35 Urine Ketones Negative mg/dL (NEGATIVE) 06/11/17 17:35 Urine Blood Trace-intact (NEGATIVE) H 06/11/17 17:35 Urine Nitrate Negative (NEGATIVE) 06/11/17 17:35 Urine Bilirubin Negative (NEGATIVE) 06/11/17 17:35 Urine Urobilinogen 0.2 E.U./dL (<1 E.U./dL) 06/11/17 17:35 Ur Leukocyte Esterase Negative Slim/uL (NEGATIVE) 06/11/17 17:35 Urine RBC 0 - 2 /hpf (0-2) 06/11/17 17:35 Urine WBC 0 - 2 /hpf (0-6) 06/11/17 17:35 Ur Epithelial Cells 0 - 2 /hpf (0-5) 06/11/17 17:35 Urine Bacteria Many (NEG) 06/11/17 17:35 Urine HCG, Qual Negative (NEGATIVE) 06/11/17 17:35 Blood Type O POSITIVE 06/11/17 21:30 Blood Type Confirm O POSITIVE 06/11/17 21:50 Antibody Screen Negative 06/11/17 21:30 BBK History Checked No verified bt 06/11/17 21:30 Attending/Attestation - Attestation I have personally seen and examined this patient.: Yes I have fully participated in the care of the patient.: Yes I have reviewed all pertinent clinical information, including history, physical exam and plan: Yes Notes (Text): 06/14/17 18:29 31 year old female with past medical history of hypertension, diabetes and hypothyroidism who presented with RLQ pain secondary to acute appendicitis. She was started on iv antibiotics and analgesics. She is s/p appendectomy POD # 2. SONIA drain is in place. Her symptoms improved and her diet was advanced. BCx were positive for coag negative staph, possibly contaminant and repeat bcx were negative to date. She is discharged home to follow up with her pmd. Continue with po antibiotics as prescribed. Continue with drain care and follow up with surgery. Isaiah Clifton MD Hospitalist.
== END 2017-06-14 16:36 | disposition home or self-care (01) | DRG 151 ==
LOC: ED 16:47 → ERH 21:04 → 3RNO 22:06
PROVIDERS: ADMIT Internal Medicine; ATTEND Internal Medicine
PROC: 0DTJ4ZZ Resection of Appendix, Percutaneous Endoscopic Approach (ICD-10-PCS; principal; 2017-06-13)
PROC: 0DNE4ZZ Release Large Intestine, Percutaneous Endoscopic Approach (ICD-10-PCS; 2017-06-13)
PROC: 0DN84ZZ Release Small Intestine, Percutaneous Endoscopic Approach (ICD-10-PCS; 2017-06-13)
PROC: 0D9J40Z Drainage of Appendix with Drainage Device, Percutaneous Endoscopic Approach (ICD-10-PCS; 2017-06-13)
DX: K35.3 Acute appendicitis with localized peritonitis (principal); I10 Essential (primary) hypertension; E78.5 Hyperlipidemia, unspecified; E11.9 Type 2 diabetes mellitus without complications; E03.9 Hypothyroidism, unspecified; E66.01 Morbid (severe) obesity due to excess calories; Z68.42 Body mass index [BMI] 45.0-49.9, adult; Z79.84 Long term (current) use of oral hypoglycemic drugs